=== PATIENT | female | born 1965 | race Caucasian/White ===

== ENCOUNTER 2025-09-28 09:47 | Emergency (ER) | payer OTHER ==
[~2025-09-28] VITALS: Ht 162.6 cm; Wt 66.7 kg
[2025-09-28] MEDS ORDERED: IBUP600 PO (10:16)
[2025-09-28] MEDS ORDERED: Budeprion Xl300 MG PO (21:58)
[2025-09-28] MEDS ORDERED: Cyclobenzaprine10 MG PO (22:01)
[2025-09-28] MEDS ORDERED: CITALOPRAM HBR10 MG PO (22:02)
[2025-09-28] MEDS ORDERED: Atarax10 MG PO (22:03)
== END 2025-09-28 10:21 | disposition home or self-care (01) ==
LOC: ER 09:47
DX: S39.92XA Unspecified injury of lower back, initial encounter (principal); V48.5XXA Car driver injured in noncollision transport accident in traffic accident, initial encounter; Y92.410 Unspecified street and highway as the place of occurrence of the external cause; Z88.5 Allergy status to narcotic agent
CPT/HCPCS: 99284

== ENCOUNTER 2025-09-28 11:06 | Observation (INO) | payer OTHER ==
[~2025-09-28] VITALS: Ht 162.6 cm; Wt 71.1 kg
[~2025-09-28 11:06] MED LIST: IBUP600 PO
[2025-09-28 13:09] LABS: BASOPHILS ABSOLUTE AUTO 0.05 K/mm3 (0.00-0.23); BASOPHILS PERCENT AUTO 0 % (0-2); EOSINOPHILS ABSOLUTE AUTO 0.01 K/mm3 (0.00-0.68); EOSINOPHILS PERCENT AUTO 0 % (0-6); Hematocrit 43.7 % (33.0-51.0); Hemoglobin 14.7 g/dL (11.5-16.0); IMMATURE GRAN ABSOLUTE AUTO 0.08 K/mm3 (0.00-0.10); IMMATURE GRAN PERCENT AUTO 1 % (0-1); LYMPHOCYTES ABSOLUTE AUTO 0.66 K/mm3 (0.84-5.20); LYMPHOCYTES PERCENT AUTO 4 % (21-46); MONOCYTES ABSOLUTE AUTO 1.00 K/mm3 (0.16-1.47); MONOCYTES PERCENT AUTO 6 % (4-13); Mean Corpuscular HGB Conc 33.6 g/dL (31.5-36.5); Mean Corpuscular Volume 91 fL (80-100); NEUTROPHILS ABSOLUTE AUTO 13.86 K/mm3 (1.96-9.15); NEUTROPHILS PERCENT AUTO 89 % (41-73); NRBC ABSOLUTE 0.00 K/mm3 (0.00-0.02); NRBC Auto 0.0 /100 WBC (0.0-0.2); Platelet Count 345 K/mm3 (150-400); RDW Coefficient Variation 13.4 % (11.7-14.2); RDW Standard Deviation 45.6 fL (35.1-46.3)
[2025-09-28 13:54] LABS: Alanine Aminotransfer (ALT/SGP 31 U/L (12-78); Albumin, Blood 4.3 g/dL (3.4-5.0); Albumin/Globulin Ratio 1.2 (0.8-1.8); Anion Gap 9 mmol/L (3-11); Aspartate Aminotrans (AST/SGOT 23 U/L (12-37); Bilirubin, Total 0.5 mg/dL (0.1-1.0); Blood Urea Nitrogen 12 mg/dL (8-24); CO2, Blood 28 mmol/L (21-32); Calcium, Blood 9.8 mg/dL (8.5-10.1); Chloride, Blood 101 mmol/L (98-108); Creatinine, Blood 0.65 mg/dL (0.40-1.00); Ethanol (Alcohol), Blood, Med <3 mg/dL; Globulin, Blood 3.5 g/dL (2.2-4.0); Glucose, Blood 113 mg/dL (70-99); Potassium, Blood 3.6 mmol/L (3.5-5.5); Sodium, Blood 134 mmol/L (136-145); Total Protein, Blood 7.8 g/dL (6.4-8.2)
[2025-09-28] MEDS ORDERED: Ketorolac Tromethamine 15mg Vial IV ONE (17:35)
[2025-09-28 17:38] LABS: Source, Urine Clean Catch
[2025-09-28 17:44] LABS: Bilirubin, Urine Neg (Neg); Color, Urine Yellow (P-Yellow); Glucose Qualitative, Urine Neg (Neg); Ketones, Urine 3+ (Neg); Leukocyte Esterase, Urine 1+ (Neg); Protein, Urine Neg (Neg); Specific Gravity, Urine 1.015 (1.003-1.022); Urobilinogen, Urine NORM (Normal)
[2025-09-28 18:00] LABS: U Amphetamine Screen Not Detected; U Barbiturate Screen Not Detected; U Benzodiazapine Screen Not Detected; U Buprenorphine Screen Not Detected; U Cannabinoids Screen Not Detected; U Cocaine Screen Not Detected; U Methadone Screen Not Detected; U Methamphetamine Screen DETECTED; U Opiates Screen Not Detected; U Oxycodone Screen Not Detected; U Phencyclidine Screen Not Detected
[2025-09-28 18:03] LABS: Red Blood Cells, Urine 0-2 /hpf (0-2)
[2025-09-28] MEDS ORDERED: NS 1,000 ML IV SCH (21:20)
[2025-09-28] MEDS ORDERED: FentaNYL Citrate 50 MCG/ML 2 ML Injection IV PRN (21:20)
[2025-09-28 21:52] VITALS: BP 143/93
[2025-09-28] MEDS ORDERED: Budeprion Xl300 MG PO (21:58)
[2025-09-28] MEDS ORDERED: Cyclobenzaprine10 MG PO (22:01)
[2025-09-28] MEDS ORDERED: CITALOPRAM HBR10 MG PO (22:02)
[2025-09-28] MEDS ORDERED: Atarax10 MG PO (22:03)
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
[2025-09-29] VITALS (7 sets, daily range): BP systolic 102–153; BP diastolic 65–96
[2025-09-29 04:04] LABS: BASOPHILS ABSOLUTE AUTO 0.03 K/mm3 (0.00-0.23); BASOPHILS PERCENT AUTO 0 % (0-2); EOSINOPHILS ABSOLUTE AUTO 0.08 K/mm3 (0.00-0.68); EOSINOPHILS PERCENT AUTO 1 % (0-6); Hematocrit 40.2 % (33.0-51.0); Hemoglobin 13.8 g/dL (11.5-16.0); IMMATURE GRAN ABSOLUTE AUTO 0.03 K/mm3 (0.00-0.10); IMMATURE GRAN PERCENT AUTO 0 % (0-1); LYMPHOCYTES ABSOLUTE AUTO 1.06 K/mm3 (0.84-5.20); LYMPHOCYTES PERCENT AUTO 10 % (21-46); MONOCYTES ABSOLUTE AUTO 0.76 K/mm3 (0.16-1.47); MONOCYTES PERCENT AUTO 8 % (4-13); Mean Corpuscular HGB Conc 34.3 g/dL (31.5-36.5); Mean Corpuscular Volume 89 fL (80-100); NEUTROPHILS ABSOLUTE AUTO 8.22 K/mm3 (1.96-9.15); NEUTROPHILS PERCENT AUTO 81 % (41-73); NRBC ABSOLUTE 0.00 K/mm3 (0.00-0.02); NRBC Auto 0.0 /100 WBC (0.0-0.2); Platelet Count 315 K/mm3 (150-400); RDW Coefficient Variation 13.5 % (11.7-14.2); RDW Standard Deviation 44.4 fL (35.1-46.3)
[2025-09-29 04:41] LABS: Alanine Aminotransfer (ALT/SGP 25.0 U/L (12-78); Albumin, Blood 3.5 g/dL (3.4-5.0); Albumin/Globulin Ratio 1.1 (0.8-1.8); Anion Gap 10.0 mmol/L (3-11); Aspartate Aminotrans (AST/SGOT 30.0 U/L (12-37); Bilirubin, Total 0.8 mg/dL (0.1-1.0); Blood Urea Nitrogen 7.0 mg/dL (8-24); CO2, Blood 24.0 mmol/L (21-32); Calcium, Blood 9.4 mg/dL (8.5-10.1); Chloride, Blood 101.0 mmol/L (98-108); Creatinine, Blood 0.56 mg/dL (0.40-1.00); Globulin, Blood 3.3 g/dL (2.2-4.0); Glucose, Blood 99.0 mg/dL (70-99); Potassium, Blood 4.3 mmol/L (3.5-5.5); Sodium, Blood 131.0 mmol/L (136-145); Total Protein, Blood 6.8 g/dL (6.4-8.2)
--- NOTE | 2025-09-29 05:37 | NUR ---
SHIFT SUMMARY SEE PREVIOUS NOTE NO ACUTE CHANGES SINCE ARRIVAL TO UNIT. NEURO REMAINS UNCHANGED. CONTINUES TO HAVE PAIN WITH MOVEMENT. REPORTS IMPROVED TINGLING IN FEET. NEEDING 2L VIA NC WHILE SLEEPING FOR NOTED DESATTING INTO THE 80'S. OTHERWISE VSS. REMAINS AT BEDSIDE. BED IN LOWEST POSITION AND CALL LIGHT WITHIN REACH. THIS RN WILL REPORT TO ONCOMING DAYSHIFT RN.
--- NOTE | 2025-09-29 11:49 | NUR ---
UPDATE: PT C/O HEADACHE, MEDICATED PER EMAR. COMPLETED BEDBATH, LINEN CHANGE, AND ANTIFUNGAL POWDER APPLIED TO PANNUS FOLDS AND UNDERNEATH BREASTS. REPOSITIONED HIGH FOWLERS, FLOATED BILTERAL HIPS. COMPLETED AYALA CARE AND CHANGED STAT LOCK DUE TO LIMITED SLACK CAUSING INDENTATION TO SKIN. PT LYING IN BED EATING LUNCH, CALL WITHIN REACH.
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
[2025-09-30] VITALS (9 sets, daily range): BP systolic 90–125; BP diastolic 55–91
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
--- NOTE | 2025-09-30 12:04 | NUR ---
DR. QUILES TO BEDSIDE, THIS RN AND BEHAVIORAL SERVICES TECH PRESENT FOR MD ROUNDING. PATIENTS MOTHER ALSO AT BEDSIDE. NO NEW ORDERS FOR THIS RN TO PLACE.
--- NOTE | 2025-09-30 14:56 | NUR ---
DR. QUILES UPDATED AT 1410 ON BLOOD PRESSURE TRENDS SINCE 1130 AM, SEE CHARTED VITALS. THIS RN ALSO DISCUSSED MINIMAL PO FLUID INTAKE AND SODIUM LAB. NO NEW ORDERS FOR THIS RN TO PLACE. PATIENT SITTING UP IN BED WATCHING TV. DENIES NEEDS AT THIS TIME. MOM REMAINS AT BEDSIDE.
--- NOTE | 2025-09-30 17:24 | NUR ---
SHIFT SUMMARY: PATIENT REMAINS ALERT AND ORIENTED. INTERMIT PAIN, MEDICATED PER EMAR WITH SCHEDULED MEDICATIONS. ON ROOM AIR WHILE AWAKE AND NEEDING 2L AT TIMES WHEN SLEEPING. TELE CONTINUES TO SHOW SR/ST WITH WITH 80'S-100'S. DENIES CHEST PAIN. TOLERATING PO DIET. BED BATH COMPLETED THIS SHIFT. PUREWICK REMAINS IN PLACE. STRICT BEDREST UNTIL PATIENT RECIEVES TLSO BRACE. MOM REMAINS AT BEDSIDE AND UPDATED ON PLAN OF CARE THROUGHOUT THE DAY. CALL LIGHT IN REACH. EATING DINNER AT THIS TIME AND DENIES NEEDS.
[2025-10-01 04:08] LABS: Anion Gap 8.0 mmol/L (3-11); Blood Urea Nitrogen 10.0 mg/dL (8-24); CO2, Blood 27.0 mmol/L (21-32); Calcium, Blood 9.4 mg/dL (8.5-10.1); Chloride, Blood 104.0 mmol/L (98-108); Creatinine, Blood 0.65 mg/dL (0.40-1.00); Glucose, Blood 171.0 mg/dL (70-99); Potassium, Blood 4.5 mmol/L (3.5-5.5); Sodium, Blood 134.0 mmol/L (136-145)
[2025-10-01 04:28] VITALS: BP 112/68
--- NOTE | 2025-10-01 04:33 | NUR ---
ASSUMED CARE OF PT AT 1900. PT AXOX4 AND ABLE TO CALL APPROPRIATELY. PT CONTINUES TO HAVE NUMBNESS, TINGLING AND PAIN TO LOWER EXTREMITIES. ON RA WITH O2 >92%. ALL VSS. PT AWAITING TLSO BRACE WHICH SHE SHOULD BE GETTING ON THURSDAY. BED IN LOWEST POSITION AND CALL LIGHT WITHIN REACH.
[2025-10-01 07:49] VITALS: BP 129/82
[2025-10-01 11:59] VITALS: BP 103/63
--- NOTE | 2025-10-01 12:08 | NUR ---
DR. QUILES TO BEDSIDE, THIS RN ON BREAK AND BREAK RN AT BEDSIDE FOR MD ROUNDING. PLAN FOR MEDICAL NO TELE. TELE DISCONTINUED. AFTERNOON VITALS STABLE. DENIES NEEDS AT THIS TIME. MOM AT BEDSIDE. CALL LIGHT IN REACH.
[2025-10-01 15:08] VITALS: BP 112/66
--- NOTE | 2025-10-01 17:30 | NUR ---
SHIFT SUMMARY: NO ACUTE CHANGES. PATIENT REMAINS ALERT AND ORIENTED. MEDICAL STATUS NO TELE. ON ROOM AIR. VITAL SIGNS STABLE. DENIES PAIN AT THIS TIME. STRICT BEDREST, PENDING TLSO BRACE ON 10/02. TOLERATING PO DIET. PUREWICK IN PLACE. MOM REMAINS AT BEDSIDE. CALL LIGHT IN REACH. DENIES NEEDS AT THIS TIME.
[2025-10-01 20:16] VITALS: BP 113/70
[2025-10-02 02:57] VITALS: BP 129/77
--- NOTE | 2025-10-02 06:17 | NUR ---
SHIFT SUMMARY PT IS A&O X4, MOVING ALL EXTREMITIES WITH PURPOSE, OBEYS COMMANDS, PT REPORTS INTERMITTENT TINGLING IN BILATERAL FEET, DECLINES REPOSITIONING, BEDREST AT THIS TIME. CONTINUOUS SPO2, SPO2 GREATER THAN 90% RA, PT DENIES SOB T/O THIS SHIFT. HR 70-80 S, MAP GREATER THAN 65, PULSES PRESENT T/O, PT DENIES CHEST P/P T/O THIS SHIFT. BOWEL TONES PRESENT IN ALL 4Q, PT DENIES FEELINGS OF NAUSEA OR CONSTIPATION. PUREWICK IN PLACED CONNECTED TO LOW CONTINUOUS SUCTION, URINE YELLOW. MOTHER AT BEDSIDE T/O THE NIGHT BED LOWEST POSITION, CALL LIGHT IN REACH, AWAITING TO GIVE REPORT TO ONCOMING RN.
[2025-10-02 08:12] VITALS: BP 117/69
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
--- NOTE | 2025-10-02 10:17 | NUR ---
ARIEL BRACE FITTED AND PLACED. DR. QUILES IN ROOM AT TIME. PLAN FOR DR. QIULES TO PLACE ORDERS FOR IMAGING. THIS RN PRESENT FOR BRACE FITTING AND DR. QUILES ROUNDING.
[2025-10-02 11:50] VITALS: BP 127/70
--- NOTE | 2025-10-02 12:26 | NUR ---
PATIENT TO XRAY AT THIS TIME. BRACE IN PLACE.
--- NOTE | 2025-10-02 12:46 | NUR ---
PATIENT BACK FROM XRAY
[2025-10-02] MEDS ORDERED: ACET500 PO (15:56)
[2025-10-02] MEDS ORDERED: GABA300 PO (15:56)
--- NOTE | 2025-10-02 17:15 | NUR ---
DISCHARGE: PATIENT REMAINS ALERT AND ORIENTED. NO ACUTE CHANGES. BRACE REMAINS IN PLACE. PATIENT EDUCATED ON BRACE PRECAUTIONS AND BRACE WEARING WHILE UP OUT OF BED. PATIENT ABLE TO DEMONSTRATE WALKING AND PUTTING BRACE ON AND OFF. EDUCATED ON FOLLOW UP APPOINTMENTS, NEW MEDICATION, MEDICATION FAXED TO [facility], SIGNS AND SYMPTOMS OF WHEN TO RETURN. PATIENT MOM AT BEDSIDE FOR ALL EDUCATION. PATIENT LEFT UNIT VIA WHEELCHAIR WITH ALL PERSONAL BELONGINGS IN BRACE.
== END 2025-10-02 15:30 | disposition home or self-care (01) ==
LOC: ER 11:06 → ERHOLD 11:07 → PCU 11:07
PROVIDERS: Physician Assistant; ADMIT Internal Medicine
DX: S22.080A Wedge compression fracture of T11-T12 vertebra, initial encounter for closed fracture (principal); V89.2XXA Person injured in unspecified motor-vehicle accident, traffic, initial encounter; M48.04 Spinal stenosis, thoracic region; M43.8X4 Other specified deforming dorsopathies, thoracic region; D72.829 Elevated white blood cell count, unspecified; E87.1 Hypo-osmolality and hyponatremia; Z88.5 Allergy status to narcotic agent
CPT/HCPCS: 36415; 70450; 72080; 72100; 72131; 72148; 73590; 80048; 80053; 80320; 81001; 85025; 87086; 96374; 99285-25; A6590; A9270; G0378; J1885; J7030